=== PATIENT | female | born 1940 | race American Indian/Alaskan Native ===

== ENCOUNTER 2019-12-20 09:08 | Outpatient (CLI) | payer MEDICARE ==
--- NOTE | 2019-12-20 10:06 | Ultrasound Report ---
EXAMINATION: Left Complete Breast Ultrasound, 12/20/2019 INDICATION: The patient has a personal history of bilateral breast cancer. She has had previous right mastectomy. Complete left ultrasound is done for high risk screening. COMPARISON: Left screening mammogram, 12/07/2019 FINDINGS: Complete sonographic evaluation of all 4 quadrants and retroareolar region was performed. There is no evidence of suspicious solid mass or shadowing. Expected postsurgical changes are noted.. IMPRESSION: Follow up recommendation: Routine yearly BI-RADS Category 2: Benign. A normal or "negative" report should not preclude biopsy or follow-up of a clinically suspicious find ing. Signer Name: Macy Kirby MD Signed: 12/20/2019 10:01 AM Workstation Name: [id number]
== END 2019-12-20 09:09 | disposition home or self-care (01) ==
LOC: SPVWC 09:08
PROVIDERS: ATTEND Surgery
DX: N63.21 Unspecified lump in the left breast, upper outer quadrant (principal); N63.22 Unspecified lump in the left breast, upper inner quadrant

== ENCOUNTER 2020-12-10 08:29 | Outpatient (CLI) | payer MEDICARE ==
--- NOTE | 2020-12-10 09:24 | Mammography Report ---
DIGITAL SCREENING MAMMOGRAM WITH CAD, 12/10/2020 INDICATION: Routine screening mammography. TECHNIQUE: Digital left 2D mammography was obtained in the craniocaudal and mediolateral oblique pro jections. This examination was interpreted with the benefit of Computer-Aided Detection analysis. COMPARISON: 12/07/2019 FINDINGS: Breast Density: There are scattered areas of fibroglandular density. There is no evidence of dominant mass, suspicious calcifications or architectural distortion in the l eft breast. IMPRESSION: Follow up recommendation: Routine yearly BI-RADS Category 1: Negative. A "normal" or negative report should not discourage follow up or biopsy of a clinically significant f inding. A written summary of these findings will be mailed to the patient. The patient will be entered into a mammography reporting system which will generate a reminder letter for the patient's next appointmen t at the appropriate interval. The [employer] recommends yearly mammograms starting at age 40 and continuing as l liliya as a woman is in good health. Breast MRI is recommended for women with an approximate 20-25% or greater lifetime risk of breast cancer, including women with a strong family history of breast or ova joel cancer or who have been treated for Hodgkin's disease. Signer Name: Horace Weber MD Signed: 12/10/2020 9:19 AM Workstation Name: [id number]
== END 2020-12-10 08:30 | disposition home or self-care (01) ==
LOC: SPVWC 08:29
PROVIDERS: ATTEND Surgery
DX: Z12.31 Encounter for screening mammogram for malignant neoplasm of breast (principal)